=== PATIENT | female | born 1990 ===

== ENCOUNTER 2021-09-08 00:33 | Emergency (ER) | payer MEDICARE ==
[2021-09-08] MEDS ORDERED: HALOPERIDOL LACTATE 5 MG/1 ML INJ IM PRN (01:29)
[2021-09-08] MEDS ORDERED: LORazepam 2 MG/ML VIAL IM PRN (01:29)
--- NOTE | 2021-09-08 01:30 | Emergency Department Report ---
ED General Adult HPI - General Chief complaint: Psych Stated complaint: MENTAL HEALTH EVAL Time Seen by Provider: 09/08/21 01:07 Source: patient, EMS ( EMS documentation not available at time of chart dictation ), RN notes reviewed Mode of arrival: Stretcher Limitations: No Limitations, Other (Patient seems disorganized and is a poor historian) - History of Present Illness Initial comments: The patient is a 30-year-old female. She is not known to myself previously. The patient presents to the ER today with a complaint of requesting a mental health evaluation. She denies physical pain. On review of systems, she endorses that she was , but further endorses that "they cut the baby out of me." The patient states that she is not homicidal suicidal. The patient believes that she had some convulsions, but she is not sure. The patient denies physical pain. The patient is a poor historian secondary to disorganization. The patient has a hair inserts, which has wood, twigs, and dirt. She states that she has been "staying outside." History is limited as the patient is disorganized and poor historian, and she is not accompanied by friends or family at this time for collateral information or additional information The patient reportedly has a history of bipolar and schizophrenia. -: unknown Severity scale (0 -10): 0 - Related Data Allergies Allergy/AdvReac Type Severity Reaction Status Date / Time No Known Allergies Allergy Verified 09/08/21 03:32 ED Review of Systems ROS: Stated complaint: MENTAL HEALTH EVAL Other details as noted in HPI Comment: Unobtainable due to pts medical conditions (Disorganization) Constitutional: denies: fever Cardiovascular: denies: chest pain Gastrointestinal: denies: abdominal pain Neurological: other (Reports convulsion) Psychiatric: anxiety ED Past Medical Hx - Past Medical History Previous Medical History?: Yes Hx Psychiatric Treatment: Yes (Bipolar, Schizophrenia) - Surgical History Past Surgical History?: No - Social History Smoking Status: Current Every Day Smoker Substance Use Type: None ED Physical Exam - General Limitations: Other (Disorganized behavior) General appearance: alert, anxious - Head Head exam: Present: atraumatic, normocephalic - Eye Eye exam: Present: normal appearance, EOMI. Absent: nystagmus - ENT ENT exam: Present: normal exam, normal orophraynx, mucous membranes moist, normal external ear exam - Neck Neck exam: Present: normal inspection, full ROM. Absent: tenderness, meningismus - Respiratory Respiratory exam: Present: normal lung sounds bilaterally. Absent: respiratory distress, wheezes, rales, rhonchi, stridor, decreased breath sounds - Cardiovascular Cardiovascular Exam: Present: regular rate, normal rhythm, normal heart sounds. Absent: bradycardia, tachycardia, irregular rhythm, systolic murmur, diastolic murmur, rubs, gallop - GI/Abdominal GI/Abdominal exam: Present: soft. Absent: distended, tenderness, guarding, rebound, rigid, pulsatile mass - Extremities Exam Extremities exam: Present: normal inspection, full ROM, other (2+ pulses noted in the bilateral upper and lower extremities. There is no palpable cord. negative Homans sign. Muscular compartments are soft. The pelvis is stable.). Absent: pedal edema, calf tenderness - Back Exam Back exam: Present: normal inspection, full ROM. Absent: tenderness, CVA tenderness (R), CVA tenderness (L), paraspinal tenderness, vertebral tenderness - Neurological Exam Neurological exam: Present: alert, normal gait, other (No facial droop. Tongue midline. Extraocular movements intact bilaterally. Facial sensation intact to light touch in V1, V2, V3 distribution bilaterally. 5 and a 5 strength in 4 ext remities. Sensation intact to light touch in 4 extremities.). Absent: motor sensory deficit - Psychiatric Psychiatric exam: Present: anxious - Skin Skin exam: Present: warm, dry, intact, normal color. Absent: rash ED Course Vital Signs 09/08/21 09/08/21 09/08/21 00:59 01:11 03:03 Temperature 98 F 98.3 F Pulse Rate 78 79 Respiratory 16 18 Rate Blood Pressure 117/60 Blood Pressure 102/55 [Right] O2 Sat by Pulse 100 100 100 Oximetry - Reevaluation(s) Reevaluation #1: 09/08/21 04:02 Differential diagnosis, including but not limited to: Bipolar, schizophrenia, , electrolyte derangement, urinary tract infection, , negative , intracranial lesion Assessment and plan: 30-year-old female, who was afebrile, with reassuring vital signs, who is disorganized and a poor historian, with report of requesting mental health evaluation, possibly being , and possibly having convulsions. She has no lower extremity edema, noncontrast CT scan of the brain is negative for acute findings. Liver panel unremarkable, she is not hypertensive, and urinalysis does not demon strate significant proteinuria. TSH greater than 0.1, it is 0.211, therefore, hyperthyroidism is unlikely. Serum toxicology study unremarkable, she is found to be , and have a glucose of 63. Patient fed, have requested repeat Accu-Chek. Obstetrics ultrasound pending. Mental health consultation is requested. Start patient on vitamins, and vitamin B6. Reassess. 09/08/21 04:03 Reevaluation #2: 09/08/21 04:04 Repeat Accu-Chek is 140 Reevaluation #3: 09/08/21 05:35 Patient observed in this department for hours without clinical decompensation. Ultrasound shows a 19-week . This is a previable . Psychiatric consultation is pending at this time. At this point in time, this patient does not appear to have an immediate medical contraindication to psychiatric admission, evaluation, consultation. ED Medical Decision Making - Lab Data Result diagrams: 09/08/21 01:34 09/08/21 01:34 Vital Signs 09/08/21 09/08/21 00:59 01:11 Temperature 98 F Pulse Rate 78 Respiratory 16 Rate Blood Pressure 117/60 O2 Sat by Pulse 100 100 Oximetry Lab Results 09/08/21 09/08/21 09/08/21 Range/Units 01:34 01:34 01:34 WBC (4.5-11.0) K/mm3 RBC (3.65-5.03) M/mm3 Hgb (10.1-14.3) gm/dl Hct (30.3-42.9) % MCV (79-97) fl MCH (28-32) pg MCHC (30-34) % RDW (13.2-15.2) % Plt Count (140-440) K/mm3 Sodium 133 L (137-145) mmol/L Potassium 3.9 (3.6-5.0) mmol/L Chloride 98.8 (98-107) mmol/L Carbon Dioxide 25 (22-30) mmol/L Anion Gap 13 mmol/L BUN 7 (7-17) mg/dL Creatinine 0.4 L (0.6-1.2) mg/dL Estimated GFR > 60 ml/min BUN/Creatinine Ratio 18 % Glucose 63 L (65-100) mg/dL Calcium 9.0 (8.4-10.2) mg/dL Magnesium (1.7-2.3) mg/dL Total Bilirubin < 0.20 (0.1-1.2) mg/dL AST 12 (5-40) units/L ALT 14 (7-56) units/L Alkaline Phosphatase 71 (35-129) units/L Total Creatine Kinase (30-135) units/L Total Protein 6.9 (6.3-8.2) g/dL Albumin 3.3 L (3.9-5) g/dL Albumin/Globulin Ratio 0.9 % TSH 0.211 L (0.270-4.200) mlU/mL HCG, Qual (Negative) HCG, Quant (0-4) mIU/mL Urine Color (Yellow) Urine Turbidity (Clear) Urine pH (5.0-7.0) Ur Specific [place] (1.003-1.030) Urine Protein (Negative) mg/dL Urine Glucose (UA) (Negative) mg/dL Urine Ketones (Negative) mg/dL Urine Blood (Negative) Urine Nitrite (Negative) Urine Bilirubin (Negative) Urine Urobilinogen (<2.0) mg/dL Ur Leukocyte Esterase (Negative) Urine WBC (Auto) (0.0-6.0) /HPF Urine RBC (Auto) (0.0-6.0) /HPF U Epithel Cells (Auto) (0-13.0) /HPF Urine Mucus /HPF Salicylates < 0.3 L (2.8-20.0) mg/dL Urine Opiates Screen Urine Methadone Screen Acetaminophen (10.0-30.0) ug/mL Ur Barbiturates Screen Valproic Acid < 2.8 L (50-100) ug/mL Ur Phencyclidine Scrn Ur Amphetamines Screen U Benzodiazepines Scrn Urine Cocaine Screen U Marijuana (THC) Screen Drugs of Abuse Note Plasma/Serum Alcohol (0-0.07) % 09/08/21 09/08/21 09/08/21 Range/Units 01:34 01:34 01:34 WBC (4.5-11.0) K/mm3 RBC (3.65-5.03) M/mm3 Hgb (10.1-14.3) gm/dl Hct (30.3-42.9) % MCV (79-97) fl MCH (28-32) pg MCHC (30-34) % RDW (13.2-15.2) % Plt Count (140-440) K/mm3 Sodium (137-145) mmol/L Potassium (3.6-5.0) mmol/L Chloride (98-107) mmol/L Carbon Dioxide (22-30) mmol/L Anion Gap mmol/L BUN (7-17) mg/dL Creatinine (0.6-1.2) mg/dL Estimated GFR ml/min BUN/Creatinine Ratio % Glucose (65-100) mg/dL Calcium (8.4-10.2) mg/dL Magnesium (1.7-2.3) mg/dL Total Bilirubin (0.1-1.2) mg/dL AST (5-40) units/L ALT (7-56) units/L Alkaline Phosphatase (35-129) units/L Total Creatine Kinase (30-135) units/L Total Protein (6.3-8.2) g/dL Albumin (3.9-5) g/dL Albumin/Globulin Ratio % TSH (0.270-4.200) mlU/mL HCG, Qual Positive (Negative) HCG, Quant (0-4) mIU/mL Urine Color (Yellow) Urine Turbidity (Clear) Urine pH (5.0-7.0) Ur Specific [place] (1.003-1.030) Urine Protein (Negative) mg/dL Urine Glucose (UA) (Negative) mg/dL Urine Ketones (Negative) mg/dL Urine Blood (Negative) Urine Nitrite (Negative) Urine Bilirubin (Negative) Urine Urobilinogen (<2.0) mg/dL Ur Leukocyte Esterase (Negative) Urine WBC (Auto) (0.0-6.0) /HPF Urine RBC (Auto) (0.0-6.0) /HPF U Epithel Cells (Auto) (0-13.0) /HPF Urine Mucus /HPF Salicylates (2.8-20.0) mg/dL Urine Opiates Screen Urine Methadone Screen Acetaminophen 5.0 L (10.0-30.0) ug/mL Ur Barbiturates Screen Valproic Acid (50-100) ug/mL Ur Phencyclidine Scrn Ur Amphetamines Screen U Benzodiazepines Scrn Urine Cocaine Screen U Marijuana (THC) Screen Drugs of Abuse Note Plasma/Serum Alcohol < 0.01 (0-0.07) % 09/08/21 09/08/21 09/08/21 Range/Units 01:34 01:34 01:34 WBC 8.7 (4.5-11.0) K/mm3 RBC 4.37 (3.65-5.03) M/mm3 Hgb 10.6 (10.1-14.3) gm/dl Hct 33.5 (30.3-42.9) % MCV 77 L (79-97) fl MCH 24 L (28-32) pg MCHC 32 (30-34) % RDW 14.3 (13.2-15.2) % Plt Count 308 (140-440) K/mm3 Sodium (137-145) mmol/L Potassium (3.6-5.0) mmol/L Chloride (98-107) mmol/L Carbon Dioxide (22-30) mmol/L Anion Gap mmol/L BUN (7-17) mg/dL Creatinine (0.6-1.2) mg/dL Estimated GFR ml/min BUN/Creatinine Ratio % Glucose (65-100) mg/dL Calcium (8.4-10.2) mg/dL Magnesium 1.70 (1.7-2.3) mg/dL Total Bilirubin (0.1-1.2) mg/dL AST (5-40) units/L ALT (7-56) units/L Alkaline Phosphatase (35-129) units/L Total Creatine Kinase 108 (30-135) units/L Total Protein (6.3-8.2) g/dL Albumin (3.9-5) g/dL Albumin/Globulin Ratio % TSH (0.270-4.200) mlU/mL HCG, Qual (Negative) HCG, Quant 23445 H (0-4) mIU/mL Urine Color (Yellow) Urine Turbidity (Clear) Urine pH (5.0-7.0) Ur Specific [place] (1.003-1.030) Urine Protein (Negative) mg/dL Urine Glucose (UA) (Negative) mg/dL Urine Ketones (Negative) mg/dL Urine Blood (Negative) Urine Nitrite (Negative) Urine Bilirubin (Negative) Urine Urobilinogen (<2.0) mg/dL Ur Leukocyte Esterase (Negative) Urine WBC (Auto) (0.0-6.0) /HPF Urine RBC (Auto) (0.0-6.0) /HPF U Epithel Cells (Auto) (0-13.0) /HPF Urine Mucus /HPF Salicylates (2.8-20.0) mg/dL Urine Opiates Screen Urine Methadone Screen Acetaminophen (10.0-30.0) ug/mL Ur Barbiturates Screen Valproic Acid (50-100) ug/mL Ur Phencyclidine Scrn Ur Amphetamines Screen U Benzodiazepines Scrn Urine Cocaine Screen U Marijuana (THC) Screen Drugs of Abuse Note Plasma/Serum Alcohol (0-0.07) % 09/08/21 09/08/21 Range/Units 02:08 02:08 WBC (4.5-11.0) K/mm3 RBC (3.65-5.03) M/mm3 Hgb (10.1-14.3) gm/dl Hct (30.3-42.9) % MCV (79-97) fl MCH (28-32) pg MCHC (30-34) % RDW (13.2-15.2) % Plt Count (140-440) K/mm3 Sodium (137-145) mmol/L Potassium (3.6-5.0) mmol/L Chloride (98-107) mmol/L Carbon Dioxide (22-30) mmol/L Anion Gap mmol/L BUN (7-17) mg/dL Creatinine (0.6-1.2) mg/dL Estimated GFR ml/min BUN/Creatinine Ratio % Glucose (65-100) mg/dL Calcium (8.4-10.2) mg/dL Magnesium (1.7-2.3) mg/dL Total Bilirubin (0.1-1.2) mg/dL AST (5-40) units/L ALT (7-56) units/L Alkaline Phosphatase (35-129) units/L Total Creatine Kinase (30-135) units/L Total Protein (6.3-8.2) g/dL Albumin (3.9-5) g/dL Albumin/Globulin Ratio % TSH (0.270-4.200) mlU/mL HCG, Qual (Negative) HCG, Quant (0-4) mIU/mL Urine Color Yellow (Yellow) Urine Turbidity Clear (Clear) Urine pH 6.0 (5.0-7.0) Ur Specific [place] 1.019 (1.003-1.030) Urine Protein <15 mg/dl (Negative) mg/dL Urine Glucose (UA) Neg (Negative) mg/dL Urine Ketones Neg (Negative) mg/dL Urine Blood Neg (Negative) Urine Nitrite Neg (Negative) Urine Bilirubin Neg (Negative) Urine Urobilinogen < 2.0 (<2.0) mg/dL Ur Leukocyte Esterase Neg (Negative) Urine WBC (Auto) 1.0 (0.0-6.0) /HPF Urine RBC (Auto) 1.0 (0.0-6.0) /HPF U Epithel Cells (Auto) 2.0 (0-13.0) /HPF Urine Mucus 1+ /HPF Salicylates (2.8-20.0) mg/dL Urine Opiates Screen Negative Urine Methadone Screen Negative Acetaminophen (10.0-30.0) ug/mL Ur Barbiturates Screen Negative Valproic Acid (50-100) ug/mL Ur Phencyclidine Scrn Negative Ur Amphetamines Screen Negative U Benzodiazepines Scrn Negative Urine Cocaine Screen Positive U Marijuana (THC) Screen Negative Drugs of Abuse Note Disclamer Plasma/Serum Alcohol (0-0.07) % - EKG Data -: EKG Interpreted by Ga EKG shows normal: sinus rhythm Rate: normal - EKG Data 09/08/21 03:19 The EKG is interpreted at 01: 44 Sinus rhythm, 80 bpm. Normal axis, normal intervals, normal P wave axis, high left ventricular voltage. Abnormal EKG. Not a STEMI. - Radiology Data Radiology results: pending, report reviewed, image reviewed CT HEAD WITHOUT CONTRAST INDICATION / CLINICAL INFORMATION: Convulsion, psychiatric symptom. TECHNIQUE: CT head was performed without administration of intravenous contrast. All CT scans at this location are performed using CT dose reduction for ALARA by means of automated exposure control. COMPARISON: None available. FINDINGS: CEREBRAL PARENCHYMA: No significant abnormality. No acute territorial infarct. HEMORRHAGE: None. EXTRA-AXIAL SPACES: Normal in size and morphology for the patient's age. VENTRICULAR SYSTEM: Normal in size and morphology for the patient's age. MIDLINE SHIFT / HERNIATION: None. CEREBELLUM / BRAINSTEM: No significant abnormality. ORBITS: Normal as visualized. SOFT TISSUES: No significant abnormality. SKULL: No significant abnormality. PARANASAL SINUSES / MASTOID AIR CELLS: Normal as visualized. ADDITIONAL FINDINGS: None. IMPRESSION: 1. No acute intracranial abnormality. Signer Name: Abel Schaefer II, MD Signed: 09/08/2021 1:20 AM Workstation Name: [id number] ULTRASOUND OBSTETRIC INDICATION / CLINICAL INFORMATION: , psych. Clinical Gestational Age (GA) in weeks, days: 18, 1 TECHNIQUE: Transabdominal. COMPARISON: None available. FINDINGS: Single cephalic fetus heart rate 161. Grade 0 anterior placenta. As measured, cervix is 3 cm. Endocervical canal not well visualized. Amniotic fluid appears within normal limits largest pocket measuring 5.2 cm. Biparietal Diameter = 4.54 cm = 19, 5 weeks, days Head Circumference = 15.97 cm = 18, 6 weeks, days Abdominal Circumference = 15.04 cm = 20, 2 weeks, days Femur Length = 3.00 cm = 19, 2 weeks, days Average Ultrasound Age (AUA) = 19, 4 weeks, days Estimated weight = 308. IMPRESSION: 1. Single, living intrauterine with estimated sonographic age of 19, 4 weeks, days. Signer Name: Abel Schaefer II, MD Signed: 09/08/2021 3:45 AM Workstation Name: [id number] Critical care attestation.: If time is entered above; I have spent that time in minutes in the direct care of this critically ill patient, excluding procedure time. ED Disposition Clinical Impression: Medical clearance for psychiatric admission, , History of bipolar disorder, History of schizophrenia Disposition: [address] [place] [address] Is pt being admited?: No Does the pt Need Aspirin: No Condition: Good Referrals: CALEB SALAS MD [Primary Care Provider] - 3-5 Days
--- NOTE | 2021-09-08 02:24 | Cat Scan Report ---
CT HEAD WITHOUT CONTRAST INDICATION / CLINICAL INFORMATION: Convulsion, psychiatric symptom. TECHNIQUE: CT head was performed without administration of intravenous contrast. All CT scans at this location are performed using CT dose reduction for ALARA by means of automated exposure control. COMPARISON: None available. FINDINGS: CEREBRAL PARENCHYMA: No significant abnormality. No acute territorial infarct. HEMORRHAGE: None. EXTRA-AXIAL SPACES: Normal in size and morphology for the patient's age. VENTRICULAR SYSTEM: Normal in size and morphology for the patient's age. MIDLINE SHIFT / HERNIATION: None. CEREBELLUM / BRAINSTEM: No significant abnormality. ORBITS: Normal as visualized. SOFT TISSUES: No significant abnormality. SKULL: No significant abnormality. PARANASAL SINUSES / MASTOID AIR CELLS: Normal as visualized. ADDITIONAL FINDINGS: None. IMPRESSION: 1. No acute intracranial abnormality. Signer Name: Abel Schaefer II, MD Signed: 09/08/2021 2:20 AM Workstation Name: [id number]
[2021-09-08 02:35] LABS: Bilirubin,Urine NEG (Negative); Blood,Urine NEG (Negative); Color,Urine Yellow (Yellow); Mucus,Urine 1+ /HPF; Protein,Urine <15 mg/dL mg/dL (Negative); Urobilinogen,Urine < 2.0 mg/dL (<2.0)
[2021-09-08 02:43] LABS: Amphetamine Screen,Urine Negative; Benzodiazepines Screen,Urine Negative; Cannabinoid Screen,Urine Negative; Methadone Screen,Urine Negative; Opiate Screen,Urine Negative
[2021-09-08 02:47] LABS: Hematocrit 33.5 % (30.3-42.9); Hemoglobin 10.6 gm/dl (10.1-14.3); Mean Corpuscular HGB Conc 32 % (30-34); Mean Corpuscular Volume 77 fl (79-97); Platelet Count 308 K/mm3 (140-440); Red Blood Count 4.37 M/mm3 (3.65-5.03); Red Cell Distribution Width 14.3 % (13.2-15.2)
[2021-09-08 02:48] LABS: Alanine Aminotransferase 14 units/L (7-56); Albumin 3.3 g/dL (3.9-5); Blood Urea Nitrogen 7 mg/dL (7-17); Hemolysis Index 1
[2021-09-08 02:59] LABS: Cocaine Screen,Urine Positive
[2021-09-08 03:00] LABS: BUN/Creatinine Ratio 18
[2021-09-08] MEDS ORDERED: DEXTROSE 10% *Hypoglycemia IV PRN (03:00)
--- NOTE | 2021-09-08 04:49 | Ultrasound Report ---
ULTRASOUND OBSTETRIC INDICATION / CLINICAL INFORMATION: , psych. Clinical Gestational Age (GA) in weeks, days: 18, 1 TECHNIQUE: Transabdominal. COMPARISON: None available. FINDINGS: Single cephalic fetus heart rate 161. Grade 0 anterior placenta. As measured, cervix is 3 cm. Endocervical canal not well visualized. Amniotic fluid appears within normal limits largest pocket measuring 5.2 cm. Biparietal Diameter = 4.54 cm = 19, 5 weeks, days Head Circumference = 15.97 cm = 18, 6 weeks, days Abdominal Circumference = 15.04 cm = 20, 2 weeks, days Femur Length = 3.00 cm = 19, 2 weeks, days Average Ultrasound Age (AUA) = 19, 4 weeks, days Estimated weight = 308. IMPRESSION: 1. Single, living intrauterine with estimated sonographic age of 19, 4 weeks, days. Signer Name: Abel Schaefer II, MD Signed: 09/08/2021 4:45 AM Workstation Name: [id number]
--- NOTE | 2021-09-08 09:21 | Electrocardiograph Report ---
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
[2021-09-08 09:28] VITALS: BP 93/46
--- NOTE | 2021-09-08 09:58 | Consultation ---
History of Present Illness - Reason for Consult Consult date: 09/08/21 Reason for consult: disorganized thoughts - History of Present Psychiatric Illness HPI: The patient is a 30-year-old female. She is not known to myself previously. The patient presents to the ER today with a complaint of requesting a mental health evaluation. She denies physical pain. On review of systems, she endorses that she was , but further endorses that "they cut the baby out of me." The patient states that she is not homicidal suicidal. The patient believes that she had some convulsions, but she is not sure. The patient denies physical pain. The patient is a poor historian secondary to disorganization. The patient has a hair inserts, which has wood, twigs, and dirt. She states that she has been "staying outside." History is limited as the patient is dis organized and poor historian, and she is not accompanied by friends or family at this time for collateral information or additional information. The patient reportedly has a history of bipolar and schizophrenia. The patient was seen today. She is cooperative. She appears a little anxious. The patient says she "was in transit [place] housing and went into convulsions." She says "my body started twitching real bad." She says "I'm homeless and am in transit at the moment." The patient says her family is in [place] and she came here to get herself situated. She says she has lived all over, and will only be in [place] about "a year or two." She says "I really just need to get myself together and get back on track." She denies any alcohol or illicit drug use, but her urine is positive for Cocaine. She says she has a history of schizophrenia and bipolar. She says she hasn't been taking any meds. The patient did not remember what meds she was taking. She denies SI/HI or hallucinations of any kind. PAST PSYCHIATRIC HISTORY Diagnoses: Schizophrenia, bipolar Suicide attempts or Self-harm behavior: Denies Prior psychiatric hospitalizations: Denies Substance Abuse history: Denies, but positive for cocaine Previous psychiatric medications tried: could not recall Outpatient treatment: Denies at present PAST MEDICAL HISTORY: None reported Family Psychiatric History: None reported or documented SOCIAL HISTORY Marital Status: Single Living Arrangements: Homeless Employment Status: disabled Access to guns/weapons: None reported Education: History of Abuse: None report Legal History: None reported REVIEW OF SYSTEMS Constitutional: Negative for weight loss ENT: Negative for stridor Respiratory: Negative for cough or hemoptysis All other systems reviewed and are negative MENTAL STATUS EXAMINATION General Appearance and Behavior: Age appropriate, fair hygiene, unkempt, good eye contact, cooperative with questioning Cooperation: Participating/engaged Psychomotor Behavior: unremarkable and within normal limits Mood: "ok" Affect and affective range: congruent with mood Thought Process: circumstantial Thought Content: none Speech: Normal tone and pace Suicidal Ideation: Denies SI Homicidal Ideation: Denies HI Hallucinations: Denies Delusions: None elicited Impulse Control: Limited Insight and Judgment: poor insight and judgment, Memory: Limited Attention: Normal, Orientation: Alert, oriented Assessment and Plan (1) Cocaine Dependence with Substance Induced Mood (2) Hx of Bipolar Disorder Treatment Plan Vistaril 50mg po x 1 Olanzapine 2.5mg po daily Risks, benefits and alternatives of medications discussed with the patient, questions answered and consent obtained from patient. PSYCHOTHERAPY: Supportive psychotherapy provided MEDICAL: Per primary team DELIRIUM PRECAUTIONS: Please re-orient patient frequently, keep lights on during the day, and minimize benzodiazepines and opiates as these medications could worsen patient's confusion. PHYSIOLOGICAL CHEMIST: Defer to primary DISPOSITION: Do not recommend acute psychiatric inpatient treatment. The patient understands that if SI/HI or any fear of endangerment arise, she is to seek immediate assistance. [facility] to give the patient all necessary outpatient resources, including drug rehab and correction The patient to follow up with outpatient psych and [facility] in 7 to 14 days upon discharge She is to abstain from all illicit drug use FOLLOW-UP: Will sing off. Thanks Case discussed with Dr. Ford who agrees with current disposition Medications and Allergies Allergies Allergy/AdvReac Type Severity Reaction Status Date / Time No Known Allergies Allergy Verified 09/08/21 03:32 Home Medications Medication Instructions Recorded Confirmed Last Taken Type OLANzapine [ZyPREXA] 2.5 mg PO QDAY #30 tablet 09/08/21 Unknown Rx Active Meds: Active Medications Dextrose (Dextrose 10% *Hypoglycemia) 100 ml IV PRN PRN PRN Reason: Hypoglycemia Haloperidol Lactate (Haloperidol Lactate 5 Mg/1 Ml Inj) 5 mg IM Q6HR PRN PRN Reason: Agitation Lorazepam (Lorazepam 2 Mg/Ml Vial) 2 mg IM Q4HR PRN PRN Reason: Agitation Multivitamins/Iron/Calcium ( [id number] Fumarate-Folic Acid Vit Tab) 1 each PO QDAY [facility] Last Admin: 09/08/21 09:54 Dose: 1 each Pyridoxine HCl (Pyridoxine 50 Mg Tab) 50 mg PO QDAY [facility] Last Admin: 09/08/21 09:54 Dose: 50 mg Mental Status Exam - Vital signs Last Vital Signs Temp 98.7 F 09/08/21 09:28 Pulse 84 09/08/21 09:28 Resp 18 09/08/21 09:28 BP 93/46 09/08/21 09:28 Pulse Ox 98 09/08/21 09:28 Results Result Diagrams: 09/08/21 01:34 09/08/21 01:34 Abnormal lab results 09/08/21 09/08/21 09/08/21 Range/Units 01:34 01:34 01:34 MCV (79-97) fl MCH (28-32) pg Sodium 133 L (137-145) mmol/L Creatinine 0.4 L (0.6-1.2) mg/dL Glucose 63 L (65-100) mg/dL POC Glucose (70-105) mg/dL Albumin 3.3 L (3.9-5) g/dL TSH 0.211 L (0.270-4.200) mlU/mL HCG, Quant (0-4) mIU/mL Salicylates < 0.3 L (2.8-20.0) mg/dL Acetaminophen (10.0-30.0) ug/mL Valproic Acid < 2.8 L (50-100) ug/mL 09/08/21 09/08/21 09/08/21 Range/Units 01:34 01:34 01:34 MCV 77 L (79-97) fl MCH 24 L (28-32) pg Sodium (137-145) mmol/L Creatinine (0.6-1.2) mg/dL Glucose (65-100) mg/dL POC Glucose (70-105) mg/dL Albumin (3.9-5) g/dL TSH (0.270-4.200) mlU/mL HCG, Quant 59967 H (0-4) mIU/mL Salicylates (2.8-20.0) mg/dL Acetaminophen 5.0 L (10.0-30.0) ug/mL Valproic Acid (50-100) ug/mL 09/08/21 Range/Units 04:03 MCV (79-97) fl MCH (28-32) pg Sodium (137-145) mmol/L Creatinine (0.6-1.2) mg/dL Glucose (65-100) mg/dL POC Glucose 141 H (70-105) mg/dL Albumin (3.9-5) g/dL TSH (0.270-4.200) mlU/mL HCG, Quant (0-4) mIU/mL Salicylates (2.8-20.0) mg/dL Acetaminophen (10.0-30.0) ug/mL Valproic Acid (50-100) ug/mL All other labs normal.
[2021-09-08] MEDS ORDERED: PYRIDOXINE 50 MG TAB PO SCH (10:00)
[2021-09-08] MEDS ORDERED: PRENATAL VIT27-FE FUMARATE-FOLIC ACID VIT TAB PO SCH (10:00)
--- NOTE | 2021-09-08 10:17 | Emergency Department Report ---
Blank Doc - Documentation Documentation: Patient was seen by psychiatric services this morning and cleared. She is not suicidal homicidal. There is no evidence of active hallucination. She has discharge recommendations provided. She was referred for outpatient follow-up.
[2021-09-08] MEDS ORDERED: hydrOXYzine PAMOATE 25 MG CAP PO SCH (10:30)
== END 2021-09-08 15:53 | disposition home or self-care (01) ==
LOC: ED 00:33
DX: Z04.6 Encounter for general psychiatric examination, requested by authority (principal); O99.342 Other mental disorders complicating pregnancy, second trimester; F31.9 Bipolar disorder, unspecified; Z20.822 Contact with and (suspected) exposure to COVID-19; R51.9 Headache, unspecified; F20.9 Schizophrenia, unspecified; F17.200 Nicotine dependence, unspecified, uncomplicated; Z3A.19 19 weeks gestation of pregnancy
CPT/HCPCS: 36415; 70450; 76801; 80053; 80164; 80307; 81001; 82550; 82962; 83735; 84443; 84702; 84703; 85027; 93005; 99285; U0003; 80320; G0480